=== PATIENT | female | born 1985 | race American Indian/Alaskan Native ===

== ENCOUNTER 2016-08-16 12:58 | Emergency (ER) | payer OTHER ==
[2016-08-16 14:03] VITALS: BP 112/66
[2016-08-16 14:57] LABS: Basophils % (Auto) 0.5 % (0.0-1.8); Eosinophils % (Auto) 0.3 % (0.0-4.3); Hematocrit 41.8 % (30.3-42.9); Hemoglobin 13.4 gm/dl (10.1-14.3); Mean Corpuscular HGB Conc 32 % (30-34); Mean Corpuscular Volume 76 fl (79-97); Platelet Count 277 K/mm3 (140-440); Red Blood Count 5.48 M/mm3 (3.65-5.03); Red Cell Distribution Width 19.5 % (13.2-15.2); White Blood Count 7.5 K/mm3 (4.5-11.0)
--- NOTE | 2016-08-16 14:58 | XRay Report ---
CHEST 2 VIEWS INDICATION: Chest pain, shortness of breath. COMPARISON: None similar at this institution. FINDINGS: PA and lateral chest radiographs demonstrate normal cardiomediastinal silhouette. Clear lungs. Slight mid thoracic spine degenerative spurring. CONCLUSION: No acute disease in the chest. Thank you for the opportunity to participate in this patient's care.
[2016-08-16 14:59] LABS: Mean Corpuscular Hemoglobin 24 pg (28-32)
[2016-08-16 15:09] LABS: Anion Gap 18 mmol/L; BUN/Creatinine Ratio 21.11; Blood Urea Nitrogen 19 mg/dL (7-17); Calcium 9.4 mg/dL (8.4-10.2); Carbon Dioxide 24 mmol/L (22-30); Chloride 99.1 mmol/L (98-107); Glucose 81 mg/dL (65-100); Potassium 3.9 mmol/L (3.6-5.0); Sodium 137 mmol/L (137-145)
[2016-08-16 15:13] LABS: Alanine Aminotransferase 18 units/L (7-56); Albumin 4.3 g/dL (3.9-5); Albumin/Globulin Ratio 1.2 %; Alkaline Phosphatase 98 units/L (35-129); Bilirubin,Total 0.2 mg/dL (0.1-1.2); Lipase 42 units/L (13-60)
[2016-08-16 15:18] LABS: Bilirubin,Direct < 0.2 mg/dL (0-0.2)
--- NOTE | 2016-08-17 07:17 | ED Elopement Review ---
ED Pt Elopement review - Results review Lab results: Laboratory Tests 08/16/16 08/16/16 08/16/16 14:38 14:38 14:38 WBC 7.5 RBC 5.48 H Hgb 13.4 Hct 41.8 MCV 76 L MCH 24 L MCHC 32 RDW 19.5 H Plt Count 277 Lymph % (Auto) 14.3 Pepin % (Auto) 4.3 Eos % (Auto) 0.3 Baso % (Auto) 0.5 Lymph # 1.1 L Pepin # 0.3 Eos # 0.0 Baso # 0.0 Seg Neutrophils % 80.6 H Seg Neutrophils # 6.1 Sodium 137 Potassium 3.9 Chloride 99.1 Carbon Dioxide 24 Anion Gap 18 BUN 19 H Creatinine 0.9 Estimated GFR > 60 BUN/Creatinine Ratio 21.11 Glucose 81 Calcium 9.4 Total Bilirubin 0.2 Direct Bilirubin < 0.2 AST 17 ALT 18 Alkaline Phosphatase 98 NT-Pro-B Natriuret Pep 72.88 Total Protein 8.0 Albumin 4.3 Albumin/Globulin Ratio 1.2 Lipase 42 - Call Back decision Pt Call Back Decision: No action required
== END 2016-08-16 21:57 | disposition left against medical advice (07) ==
LOC: ED 12:58
DX: R00.2 Palpitations (principal); Z53.21 Procedure and treatment not carried out due to patient leaving prior to being seen by health care provider
CPT/HCPCS: 36415; 71020; 80048; 80074; 83690; 83880; 85025; 93005; 93010